=== PATIENT | male | born 1975 | race Caucasian/White ===

== ENCOUNTER 2017-05-28 04:49 | Inpatient (IN) | payer BC, OTHER ==
[~2017-05-28] VITALS: Ht 180.3 cm; Wt 135.1 kg
[~2017-05-28 04:49] MED LIST: BENZ100 PO; LISI-360 PO; PROZ20CA11 PO
[2017-05-28] MEDS ORDERED: hydrOXYzine HCL 50 MG TAB PO PRN (09:45)
[2017-05-28] MEDS ORDERED: MAGNESIUM HYDROXIDE SUSP 30 ML CUP PO PRN (09:45)
[2017-05-28] MEDS ORDERED: ALUMINUM/MAGNESIUM/SIMETH 30 ML CUP PO PRN (09:45)
[2017-05-28] MEDS ORDERED: FLUoxetine HCL 20 MG CAP PO SCH (10:00)
[2017-05-28] MEDS ORDERED: LISINOPRIL 10 MG TAB PO SCH ×2 (10:00→21:00)
[2017-05-28] MEDS ORDERED: ATORVASTATIN 10 MG TAB PO SCH (10:00)
[2017-05-28] MEDS ORDERED: cloNIDine HCL 0.1 MG TAB PO PRN (10:15)
[2017-05-28] MEDS: ARIPiprazole 5 MG TAB PO SCH (11:00)
[2017-05-28 11:22] VITALS: BP 165/91; PULSE 71; RESP 20; TEMP 98
[2017-05-28] MEDS ORDERED: DOCUSATE SODIUM 100 MG CAP PO PRN (12:00)
--- NOTE | 2017-05-28 12:13 | PD.CONS ---
HPI Service [facility] Consult Requested By Reason for Consult medical management Primary Care Physician Unknown Diagnoses: History of Present Illness patient is a 42 y/o male with history of depression, hypertension who's been admitted to the psych unit for worsening depression and suicidal thoughts. he says that his ' Prozac brand' changed a couple of months ago and since then he' s been feeling very depressed. he says that he had some suicidal thoughts. he had on and off vertigo,headache and nausea. he went to [facility] and then he was transferred to the psych unit for further evaluation. he's complaining of constipation. patient was seen with the RN at the bedside. Review of Systems Constitutional: COMPLAINS OF: Dizziness, DENIES: Fever, Weight loss, Chills, Night Sweats Eyes: DENIES: Blurred vision, Diplopia, Vision loss, Double Vision Ears, nose, mouth, throat: DENIES: Tinnitus, Vertigo, Throat pain, Epistaxis Respiratory: DENIES: Apneas, Cough, Snoring, Wheezing, Hemoptysis, Sputum production, Shortness of breath Cardiovascular: DENIES: Chest pain, Palpitations, Syncope, Dyspnea on Exertion , PND, Lower Extremity Edema, Orthopnea, Claudication Gastrointestinal: COMPLAINS OF: Constipation, Nausea, DENIES: Abdominal pain, Black stools, Bloody stools, Diarrhea, Vomiting, Difficulty Swallowing, Anorexia Genitourinary: DENIES: Urinary frequency, Urgency, Hematuria, Dysuria Musculoskeletal: DENIES: Joint pain, Muscle aches, Stiffness, Joint Swelling Integumentary: DENIES: Rash Neurologic: COMPLAINS OF: Headache, DENIES: Abnormal gait, Localized weakness, Paresthesias, Seizures, Speech Problems, Tremor, Poor Balance Psychiatric: COMPLAINS OF: Depression, Suicidal Ideation, DENIES: Anxiety, Confusion, Mood changes, Hallucinations, Agitation, Homicidal Ideation, Delusions Past Family Social History Allergies: Coded Allergies: No Known Allergies (Unverified Allergy, Unknown, 05/28/17) Past Medical History depression hypertension Past Surgical History appendectomy hernia repair Reported Medications lisinopril prozac Active Ordered Medications Inpatient Medications Acetaminophen (Tylenol) 650 mg Q4H PRN PO Pain 1-5 or Temp >101F; Start at 09:45 Al Hydrox/Mg Hydrox/Simethicone (Mag-Al Plus Susp Liq) 30 ml Q6H PRN PO DYSPEPSIA; Start 05/28/17 at 09:45 Aripiprazole (Abilify) 5 mg DAILY PO ; Start 05/28/17 at 11:00 Atorvastatin Calcium (Lipitor) 10 mg HS PO ; Start 05/28/17 at 21:00 Clonidine (Catapres) 0.1 mg Q8HR PRN PO SBP>180 or DBP>100; Start 05/28/17 at 10:15 Fluoxetine HCl (PROzac LIQ) 60 mg DAILY PO ; Start 05/28/17 at 11:00 Fluoxetine HCl (PROzac) 60 mg DAILY PO ; Start 05/28/17 at 10:00; Stop at 10:05; Status DC Hydroxyzine HCl (Atarax) 50 mg Q6H PRN PO ANXIETY; Start 05/28/17 at 09:45 Ibuprofen (Motrin) 600 mg Q8H PRN PO Musculoskeletal pain; Start 05/28/17 at 11:00 Lisinopril (Prinivil) 20 mg HS PO ; Start 05/28/17 at 21:00 Magnesium Hydroxide (Milk Of Magnesia Liq) 30 ml DAILY PRN PO CONSTIPATION; Start 05/28/17 at 09:45 Meloxicam (Mobic) 15 mg DAILY PO ; Start 05/28/17 at 11:00 Miscellaneous Information 1 HS T-DERMAL ; Start 05/28/17 at 21:00 Nicotine (Habitrol 7 Mg Patch.24 Hr) 1 patch DAILY T-DERMAL ; Start 05/29/17 at 09:00 Trazodone HCl (Desyrel) 50 mg HS PRN PO INSOMNIA; Start 05/28/17 at 10:00 Family History depression Social History quit drinking two years ago. vapes. no illicit drug abuse. Physical Exam Vital Signs Vital Signs Date Time Temp Pulse Resp B/P (MAP) Pulse Ox O2 Delivery O2 Flow Rate FiO2 05/28/17 11:22 98.0 71 20 165/91 (115) Physical Exam GENERAL: This is a well-nourished, well-developed patient, in no apparent distress. SKIN: No rashes, ecchymoses or lesions. Cool and dry. HEAD: Atraumatic. Normocephalic. No temporal or scalp tenderness. EYES: Pupils equal round and reactive. Extraocular motions intact. No scleral icterus. No injection or drainage. ENT: Nose without bleeding, purulent drainage or septal hematoma. Throat without erythema, tonsillar hypertrophy or exudate. Uvula midline. Airway patent. NECK: Trachea midline. No JVD or lymphadenopathy. Supple, nontender, no meningeal signs. CARDIOVASCULAR: Regular rate and rhythm without murmurs, gallops, or rubs. RESPIRATORY: Clear to auscultation. Breath sounds equal bilaterally. No wheezes , rales, or rhonchi. GASTROINTESTINAL: Abdomen soft, non-tender, nondistended. No hepato-splenomegaly , or palpable masses. No guarding. MUSCULOSKELETAL: Extremities without clubbing, cyanosis, or edema. No joint tenderness, effusion, or edema noted. No calf tenderness. Negative Homans sign bilaterally. NEUROLOGICAL: Awake and alert. Cranial nerves II through XII intact. Motor and sensory grossly within normal limits. Five out of 5 muscle strength in all muscle groups. Normal speech. Assessment and Plan Assessment and Plan A/P - hypertension/ dyslipidemia; resume home meds. -constipation; laxative as needed. -depression/ suicidal thought; management per psych. thank you for the consult. Discussed Condition With the patient and RN. Maida Maya MD May 28, 2017 12:13
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
[2017-05-28] MEDS: NICOTINE 7 MG/24 HR PATCH T-DERMAL SCH (17:55)
[2017-05-28] MEDS: MELOXICAM 15 MG TAB PO SCH (17:56)
[2017-05-28] MEDS: FLUoxetine HCL LIQUID 20 MG/5 ML CUP PO SCH (17:56)
[2017-05-28] MEDS: REMOVE OLD NICOTINE PATCH T-DERMAL SCH (21:00)
[2017-05-28] MEDS: ATORVASTATIN 10 MG TAB PO SCH ×2 (21:51→22:31)
[2017-05-28] MEDS: traZODone HCL 50 MG TAB PO PRN ×2 (21:52→22:31)
[2017-05-28] MEDS: LISINOPRIL 20 MG TAB PO SCH ×2 (21:52→22:31)
--- NOTE | 2017-05-28 22:14 | EKG ---
Date Performed: 05/28/2017 Time Performed: 10:27:44 PTAGE: 42 years EKG: Sinus rhythm NORMAL ECG NO PREVIOUS TRACING DOCTOR: Lico Christopher Interpretating Date/Time 05/28/2017 22:13:24
[2017-05-29 06:04] VITALS: BP 116/56; PULSE 68; RESP 15; TEMP 97.9; O2SAT 96
[2017-05-29] MEDS: MELOXICAM 15 MG TAB PO SCH (08:27)
[2017-05-29] MEDS: ARIPiprazole 5 MG TAB PO SCH (08:27)
[2017-05-29] MEDS: FLUoxetine HCL LIQUID 20 MG/5 ML CUP PO SCH (08:29)
[2017-05-29] MEDS: NICOTINE 7 MG/24 HR PATCH T-DERMAL SCH (09:00)
[2017-05-29] MEDS ORDERED: INFLUENZA VIRUS VACCINE (QUADRIVALENT) 0.5 ML SYR IM ONE (10:00)
--- NOTE | 2017-05-29 11:16 | HHI.PR ---
Subjective Remarks in no acute distress. feels and looks better today. says that he's improving. no new complaints. Objective Vitals Vital Signs Date Time Temp Pulse Resp B/P (MAP) Pulse Ox O2 Delivery O2 Flow Rate FiO2 05/29/17 06:04 97.9 68 15 116/56 (76) 96 05/28/17 11:22 98.0 71 20 165/91 (115) Objective Remarks GENERAL: This is a well-nourished, well-developed patient, in no apparent distress. CARDIOVASCULAR: Regular rate and regular rhythm without murmurs, gallops, or rubs. RESPIRATORY: Clear to auscultation. Breath sounds equal bilaterally. No wheezes , rales, or rhonchi. GASTROINTESTINAL: Abdomen soft, non-tender, nondistended. Normal, active bowel sounds MUSCULOSKELETAL: Extremities without clubbing, cyanosis, or edema. NEURO: Alert & Oriented x4 to person, place, time, situation. Moves all ext x4 Medications and IVs Inpatient Medications Acetaminophen (Tylenol) 650 mg Q4H PRN PO Pain 1-5 or Temp >101F; Start at 09:45 Al Hydrox/Mg Hydrox/Simethicone (Mag-Al Plus Susp Liq) 30 ml Q6H PRN PO DYSPEPSIA; Start 05/28/17 at 09:45 Aripiprazole (Abilify) 5 mg DAILY PO Last administered on 05/29/17 08:27; Start 05/28/17 at 11:00 Atorvastatin Calcium (Lipitor) 10 mg HS PO Last administered on 05/28/17 22: 31; Start 05/28/17 at 21:00 Clonidine (Catapres) 0.1 mg Q8HR PRN PO SBP>180 or DBP>100; Start 05/28/17 at 10:15 Docusate Sodium (Colace) 100 mg BID PRN PO CONSTIPATION; Start 05/28/17 at 12: 00 Fluoxetine HCl (PROzac LIQ) 60 mg DAILY PO Last administered on 05/29/17 08: 29; Start 05/28/17 at 11:00 Fluoxetine HCl (PROzac) 60 mg DAILY PO ; Start 05/28/17 at 10:00; Stop at 10:05; Status DC Hydroxyzine HCl (Atarax) 50 mg Q6H PRN PO ANXIETY; Start 05/28/17 at 09:45 Ibuprofen (Motrin) 600 mg Q8H PRN PO Musculoskeletal pain; Start 05/28/17 at 11:00 Influenza Virus Vaccine (Flu (Quadrivalent) Vaccine Inj) 0.5 ml ONCE ONCE IM ; Start 05/29/17 at 10:00; Stop 05/29/17 at 10:01; Status DC Lisinopril (Prinivil) 20 mg HS PO Last administered on 05/28/17 22:31; Start 05/28/17 at 21:00 Magnesium Hydroxide (Milk Of Magnbrian Liq) 30 ml DAILY PRN PO CONSTIPATION; Start 05/28/17 at 09:45 Meloxicam (Mobic) 15 mg DAILY PO Last administered on 05/29/17 08:27; Start 05/28/17 at 11:00 Miscellaneous Information 1 HS T-DERMAL Last administered on 05/28/17 21:00; Start 05/28/17 at 21:00 Nicotine (Habitrol 7 Mg Patch.24 Hr) 1 patch DAILY T-DERMAL Last administered on 05/29/17 09:00; Start 05/28/17 at 18:00 Trazodone HCl (Desyrel) 50 mg HS PRN PO INSOMNIA Last administered on 22:31; Start 05/28/17 at 10:00 A/P Assessment and Plan - hypertension/ dyslipidemia; continue home meds; lisinopril and statin. -constipation; laxative as needed. -depression/ suicidal thought; management per psych. [facility] will sign off and see him as needed. Maida Maya MD May 29, 2017 11:16
--- NOTE | 2017-05-29 12:22 | HHI.PYPN ---
Subjective Remarks Patient was seen and case discussed with nursing. Patient is pleasant and cooperative with exam. Patient relays a story are contributes his decline secondary to a generic Prozac. Today, he says he likes the new medication and notices a brightening of mood. He does remain depressed but he denies suicidal or homicidal ideation intent or plan. Denies guilty feelings, hopelessness, helplessness. He does have goals for the future. No longer has thoughts of hurting his boss. Asking for regular diet. Asking for discharge on xmas Mental Status Examination Appearance: Appropriate Consciousness: Alert Orientation: x4 Motor Activity: Normal gait Speech: Unremarkable Language: Adequate Fund of Knowledge: Adequate Attention and Concentration: Adequate Memory: Unremarkable Mood: Sad Affect: Anxious Thought Process & Associations: Logical, Goal directed Thought Content: Appropriate Hallucination Type: None Delusion Type: None Suicidal Ideation: No Suicidal Plan: No Suicidal Intention: No Homicidal Ideation: No Homicidal Plan: No Homicidal Intention: No Insight: Adequate Judgment: Impulsive Results Vitals/IOs Vital Signs Date Time Temp Pulse Resp B/P (MAP) Pulse Ox O2 Delivery O2 Flow Rate FiO2 05/29/17 06:04 97.9 68 15 116/56 (62) 96 Assessment & Plan Problem List: (1) Major depressive disorder, recurrent severe without psychotic features ICD Codes: F33.2 - Major depressive disorder, recurrent severe without psychotic features Assessment & Plan Continue current treatment plan Justification for Cont. Inpt. Patient would decompensate in a less restrictive setting Mark Anthony Majano DO May 29, 2017 12:22
[2017-05-29] MEDS: ACETAMINOPHEN 325 MG TAB PO PRN (14:01)
[2017-05-29 17:39] VITALS: BP 118/59; PULSE 74; RESP 15; TEMP 98.2; O2SAT 99
[2017-05-29] MEDS: REMOVE OLD NICOTINE PATCH T-DERMAL SCH (21:00)
[2017-05-29] MEDS: traZODone HCL 50 MG TAB PO PRN (21:43)
[2017-05-29] MEDS: IBUPROFEN 600 MG TAB PO PRN (21:46)
[2017-05-30 06:15] VITALS: BP 120/60; PULSE 75; RESP 16; TEMP 98.2; O2SAT 97
[2017-05-30] MEDS: MELOXICAM 15 MG TAB PO SCH (08:52)
[2017-05-30] MEDS: ARIPiprazole 5 MG TAB PO SCH (08:52)
[2017-05-30] MEDS: FLUoxetine HCL LIQUID 20 MG/5 ML CUP PO SCH (08:52)
[2017-05-30] MEDS: NICOTINE 7 MG/24 HR PATCH T-DERMAL SCH (09:00)
--- NOTE | 2017-05-30 10:53 | HHI.PYPN ---
Subjective Remarks Patient was seen and case discussed with nursing. Patient is bright and cheerful during the interview. Per nursing, he is social on the unit. He is "feeling better." He's been having daily visits from a friend named Abundio.'s plans include getting back to work. He denies suicidal or homicidal ideation intent or plan. Tolerating medications well Mental Status Examination Appearance: Appropriate Consciousness: Alert Orientation: x4 Motor Activity: Normal gait Speech: Unremarkable Language: Adequate Fund of Knowledge: Adequate Attention and Concentration: Adequate Memory: Unremarkable Mood: Appropriate Affect: Appropriate Thought Process & Associations: Logical, Goal directed Thought Content: Appropriate Hallucination Type: None Delusion Type: None Suicidal Ideation: No Suicidal Plan: No Suicidal Intention: No Homicidal Ideation: No Homicidal Plan: No Homicidal Intention: No Insight: Adequate Judgment: Impulsive Results Vitals/IOs Vital Signs Date Time Temp Pulse Resp B/P (MAP) Pulse Ox O2 Delivery O2 Flow Rate FiO2 05/30/17 06:15 98.2 75 16 120/60 (80) 97 Assessment & Plan Problem List: (1) Major depressive disorder, recurrent severe without psychotic features ICD Codes: F33.2 - Major depressive disorder, recurrent severe without psychotic features Assessment & Plan Continue current treatment plan Justification for Cont. Inpt. Patient would decompensate in a less restrictive setting Mark Anthony Majano DO May 30, 2017 10:53
[2017-05-30] MEDS: IBUPROFEN 600 MG TAB PO PRN (14:42)
[2017-05-30 17:48] VITALS: BP 112/53; PULSE 78; RESP 18; TEMP 98.2; O2SAT 98
[2017-05-30] MEDS: REMOVE OLD NICOTINE PATCH T-DERMAL SCH (21:00)
[2017-05-30] MEDS: ATORVASTATIN 10 MG TAB PO SCH (21:16)
[2017-05-30] MEDS: LISINOPRIL 20 MG TAB PO SCH (21:16)
[2017-05-30] MEDS: ACETAMINOPHEN 325 MG TAB PO PRN (21:41)
[2017-05-31 05:27] VITALS: BP 104/51; PULSE 70; RESP 18; TEMP 98.8; O2SAT 96
[2017-05-31] MEDS: IBUPROFEN 600 MG TAB PO PRN (05:45)
[2017-05-31] MEDS: MELOXICAM 15 MG TAB PO SCH (08:16)
[2017-05-31] MEDS: ARIPiprazole 5 MG TAB PO SCH (08:16)
[2017-05-31] MEDS: NICOTINE 7 MG/24 HR PATCH T-DERMAL SCH (08:17)
[2017-05-31] MEDS: FLUoxetine HCL LIQUID 20 MG/5 ML CUP PO SCH (08:17)
[2017-05-31] MEDS ORDERED: ARIP1TAB11 PO (12:08)
[2017-05-31] MEDS ORDERED: FLUO20SO PO (12:08)
[2017-05-31] MEDS ORDERED: MELO15TA20 PO (12:08)
[2017-05-31] MEDS ORDERED: LISI-515 PO (12:08)
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
== END 2017-05-31 13:10 | disposition home or self-care (01) | DRG 885 ==
LOC: H270 08:56 → H260 16:00
PROVIDERS: ADMIT Psychiatry & Neurology Psychiatry; ATTEND Psychiatry & Neurology Psychiatry
DX: F33.2 Major depressive disorder, recurrent severe without psychotic features (principal); I10 Essential (primary) hypertension; F10.11 Alcohol abuse, in remission; Z62.810 Personal history of physical and sexual abuse in childhood; E78.5 Hyperlipidemia, unspecified; G89.29 Other chronic pain; M79.1 Myalgia; K59.00 Constipation, unspecified; Z81.8 Family history of other mental and behavioral disorders
CPT/HCPCS: 93005

== ENCOUNTER 2017-10-08 13:22 | Day surgery (SDC) | payer BC ==
[~2017-10-08 13:22] MED LIST changes: +ARIP1TAB11 PO; -BENZ100 PO; +FLUO20SO PO; -LISI-360 PO; +LISI-515 PO; +MELO15TA20 PO; -PROZ20CA11 PO
[2017-10-08] MEDS ORDERED: LIDOCAINE HCL 1% 10 ML VIAL OTHER ONE (13:23)
[2017-10-08 13:30] VITALS: BP 113/66; PULSE 92; RESP 16; TEMP 98.6; O2SAT 96
[2017-10-08] MEDS ORDERED: SERO50TA PO (13:59)
[2017-10-08] MEDS ORDERED: IBUP200C (13:59)
[2017-10-08] MEDS ORDERED: ATOR20TA15 PO (13:59)
[2017-10-08] MEDS ORDERED: TRIAMCINOLONE ACETONIDE 40 MG/ML VIAL ONE (14:22)
[2017-10-08] MEDS ORDERED: BUPIVACAINE HCL PF 0.75% 10 ML VIAL ONE (14:22)
[2017-10-08] MEDS ORDERED: STERILE WATER FOR INJECTION 10 ML VIAL ONE (14:55)
--- NOTE | 2017-10-08 16:58 | RADRPT ---
EXAM DATE/TIME: 10/08/2017 14:34 INDICATIONS : Left back pain. Left MEDICATION(S): 1.) 1 mg sensorcaine (Bupivacine) IM 2.) 40 mg kenalog (Triamcinolone Acetonide) IM DEVICE(S): 1.) 20 gauge Chiba needle Pre-procedure pain level was Pre-procedure pain level was MEDICAL HISTORY : None. SURGICAL HISTORY : None. ENCOUNTER: Initial ACUITY: 1 day PAIN SCORE: LOCATION: Left low back PROCEDURE : CT guided steroid injection. Using automated exposure control and adjustment of the mA and/or kV according to patient size, radiat ion dose was kept as low as reasonably achievable to obtain optimal diagnostic quality images. DICOM format image data is available electronically for review and comparison. The risk and benefits of the synovial cyst rupture were explained in lay and simple terms. Right und erstands because of its size and location access may be difficult. . He understands and mass procee d. He desires no conscious sedation. . The site was prepped in sterile fashion. Full sterile technique was used, including cap, mask, st erile gloves and gown and a large sterile sheet. Hand hygiene and 2% chlorhexidine and/or betadine/a lcohol prep was utilized per protocol for cutaneous antisepsis. The skin and subcutaneous tissues we re infiltrated with local anesthetic solution. Under careful CT fluoroscopic visualization an attempt was made to access the L5-S1 facet of the left . This proved to be difficult to the large overlying facet osteophyte. Attention was then turned to accessing the synovial directly from right prone oblique approach. This was accomplished with 20 gauge Chiba needle. The cyst was ruptured with mixture of dilute mixture of contrast and saline. This was followed by Vladislav paniagua and Oren. Post procedure the patient has moderate localized pain in his abating. This will be managed with non -narcotics per his request. The steroid and Marcaine should mitigate most of the pain. CONCLUSION: Uncomplicated CT guided steroid rupture of the left L5 L5-S1 synovial cyst. Sukhwinder Ortiz MD FACR on October 08, 2017 at 16:26 Board Certified Radiologist. This report was verified electronically.
== END 2017-10-08 16:30 | disposition home or self-care (01) ==
LOC: HRAD 13:22 → HRIP 13:23 → HRAD 16:30
PROVIDERS: ATTEND Orthopaedic Surgery Orthopaedic Surgery of the Spine
DX: M54.5 Low back pain (principal); M66.18 Rupture of synovium, other site; M51.36 Other intervertebral disc degeneration, lumbar region
CPT/HCPCS: 62323; 77012; J3301

== ENCOUNTER → 2017-10-28 | Day surgery (SDC) | payer BC ==
[~2017-10-28] VITALS: Ht 179.1 cm; Wt 141.9 kg
[~2017-10-28] MED LIST changes: +ATOR20TA15 PO; +BETAMETHASONE SOD PHOS/ACETATE SUSP 30 MG/5 ML VIAL ONE; +BUPIVACAINE/EPINEPHRINE 0.25% PF 10 ML VIAL INFIL ONE; +CHLORHEXIDINE GLUCONATE 2 % 1 PACK (2 CLOTHS) TOPICAL PRN; +CHLORHEXIDINE GLUCONATE 4% SOLN 120 ML BTL TOPICAL SCH; +DEXAMETHASONE SOD PHOS 4 MG/ML VIAL IV ONE; +DO NOT ADM ANY ANTICOAGULANT DRUGS PRN; +GELFOAM SIZE 100 ONE; +GENTAMICIN SULFATE 80 MG/2 ML VIAL ONE; +GLYCOPYRROLATE 1 MG/5 ML SYRINGE IV PUSH ONE; +IBUP1TAB7 PO; +IBUP200C; +KETOROLAC TROMETHAMINE 30 MG/ML (IVP) VIAL IV PUSH ONE; +LACTATED RINGER'S 1000 ML INJ 1,000 ML IV ONE; +LACTATED RINGER'S 1000 ML IV PRN; +LIDOCAINE HCL 1% PF 5 ML SYRINGE OTHER ONE; +METOPROLOL TARTRATE 25 MG TAB PO PRN; +MIDAZOLAM HCL 2 MG/2 ML VIAL ONE; +MULT-65 PO; +NEOSTIGMINE 5 MG/5 ML SYRINGE IV PUSH ONE; +ONDANSETRON HCL 4 MG/2 ML VIAL IV ONE; +PHENYLEPH/NS 1000 MCG/10 ML SYR IV ONE; +POVIDONE IODINE 5% (ANTISEPSIS KIT) 4 APPLICATIONS EACH NARE PRN; +PROPOFOL 200 MG/20 ML AMP IV ONE; +ROCURONIUM INJ 50 MG/5 ML SYRINGE IV PUSH ONE; +SERO50TA PO; +SODIUM CHLORID 0.9% 500 ML IV PRN; +ceFAZolin 1,000 MG/NS 100 ML IV SCH; +ceFAZolin 3,000 MG/NS 100 ML (if >120 kg) IV SCH; +ceFAZolin INJ 1,000 MG VIAL ONE; +ePHEDrine/NS 25 MG/5 ML SYRINGE IV ONE; +traMADol HCL 50 MG TAB PO PRN
--- NOTE | 2017-10-28 09:27 | MP ---
cc: Ankit Anderson MD,Jay STRONG DATE OF OPERATION: 10/28/2017 PREOPERATIVE DIAGNOSES: 1. L5-S1 left-sided facet joint synovial cyst, left-sided spinal stenosis with nerve root entrapment; L5-S1 degenerative disk disease, osteoarthritis. 2. Left-sided lumbar radiculitis. 3. Morbid obesity. POSTOPERATIVE DIAGNOSES: 1. L5-S1 left-sided facet joint synovial cyst, left-sided spinal stenosis with nerve root entrapment; L5-S1 degenerative disk disease, osteoarthritis. 2. Left-sided lumbar radiculitis. 3. Morbid obesity. PROCEDURE PERFORMED: L5-S1 laminectomy, excision intraspinal extradural mass, foraminotomy, decompression of nerve root. SURGEON: Renetta Anderson MD SENIOR MASTER SCHEDULER: Aniya Alonso PA-C. ESTIMATED BLOOD LOSS: 20 mL. ANESTHESIA: General, local. COMPLICATIONS: None. SPECIMENS: Excised soft tissue and bony tissue. PROCEDURE: My diversional therapist's assistant, Aniya Alonso PA-C, was present for the entirety of the case. She was medically necessary for the entire case because of the complexity of the case and to facilitate the performance of the procedure. The SENIOR PATIENT ACCOUNT REPRESENTATIVE at the back table was not of the skill set for this case, to manipulate the instruments e.g. multiple different types of soft tissue retractors and nerve root retractors. The patient was brought into the operating room, had satisfactory general anesthesia by Dr. Brayan Reeves of the Department of Anesthesia. The patient was carefully transferred onto the [facility] spinal frame. All pressure points were well padded. Because of the patient's morbid obesity, great care was taken to protect all pressure points. Localizing x-ray was used to confirm the L5-S1. 0.25% Marcaine with epinephrine was used for local anesthesia. Midline incision made over L5-S1. Dissection carried through a considerable amount of adipose tissue down to the underlying fascia. With continued imaging, dissection was carried down to the L5-S1 interspace. A left-sided hemilaminectomy was performed. The patient was found to have a moderately large cyst coming off the facet joint left side and into the left neural foramen. The cyst itself was hemorrhagic. It was dissected cephalad, medial and caudally. Great care was taken to protect the nerve root and the cyst was removed in multiple pieces in addition to the hemilaminectomy. The wound was irrigated with copious amounts of sterile saline antibiotic solution. The wound itself was dry, satisfactory decompression, no evidence of any CSF leaks. Wound was closed in layers. The fascia was closed with #2 Ti-Cron suture, subcuticular layer with 0 Vicryl and 2-0 Vicryl, skin was approximated with running subcuticular 3-0 Vicryl, Dermabond placed over the skin. The patient tolerated the procedure well and arrived in the recovery room in stable and satisfactory condition. MD TIM Berrios/LAISHA , 08:58 AM , 09:25 AM
[2017-10-28 10:21] VITALS: BP 131/66; PULSE 85; RESP 18; TEMP 97.8; O2SAT 95
--- NOTE | 2017-10-28 22:21 | RADRPT ---
EXAM DATE: 10/28/2017 10:18 PM EDT AGE/SEX: 42 years / Male INDICATIONS: L5-S1 laminectomy level loc. CLINICAL DATA: This is the patient's initial encounter. Patient reports that signs and symptoms have been present for 1 day and indicates a pain score of Nonresponsive. MEDICAL/SURGICAL HISTORY: Non-responsive. Non-responsive. COMPARISON: No prior [facility] exams available for comparison. FINDINGS: A single lateral view of the lower lumbar region is recorded digitally in the operating room using C- arm. A localization probe is in place. CONCLUSION: Intraoperative image. Electronically signed by: Bronson Jordan MD 10/28/2017 10:19 PM EDT
== END | disposition home or self-care (01) ==
LOC: HSDC 05:20
PROVIDERS: ATTEND Orthopaedic Surgery Orthopaedic Surgery of the Spine
DX: M48.07 Spinal stenosis, lumbosacral region (principal); M51.17 Intervertebral disc disorders with radiculopathy, lumbosacral region; E66.01 Morbid (severe) obesity due to excess calories; M47.9 Spondylosis, unspecified
CPT/HCPCS: 00630; 63047; 72020; 88305; 88311; J0690; J0702; J1100; J1580; J1885; J2250; J2370; J2405; J2710; J3010; J7120; 76000